=== PATIENT | female | born 1955 | race Two or more races ===

== ENCOUNTER 2025-09-18 11:27 | Emergency (ER) | payer OTHER ==
[~2025-09-18] VITALS: Ht 154.9 cm; Wt 85.0 kg
--- NOTE | 2025-09-18 11:42 | ECG ---
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
--- NOTE | 2025-09-18 12:02 | ED.PDOC ---
HPI Comments 70 y/o F, with PMHx of HTN, HLD, and DM presents to the ED for CC of chest pain. Patient states, she began to experience sudden left-sided chest pain following local anesthesia during a dental procedure today (09/18/25). Following procedure, patient relays to have associated dizziness. Patient reports, to have had similar episodes in the past but never during a procedure. Patient endorses, taking her blood pressure medication as prescribed this morning (09/18/25); denies taking her Aspirin or any other blood thinners. Patient denies nausea, vomiting, shortness of breath, or headache. No other symptoms or modifying factors are present at this time. Chief Complaint: Chest Pain Time Seen by MD: 11:50 Reviewed Notes: Nurses Notes, Medications, Allergies Allergies: Uncoded Allergies: VACCINES (Allergy, Unknown, 09/18/25) Information Source: Patient Mode of Arrival: Ambulatory Severity: Moderate Timing: Minutes Duration: Since onset Prehospital treatment: None Location: Chest (L) Radiation: No Radiation Quality: Squeezing Cardiac Risk Factors: Hyperlipidemia, HTN, Diabetes PE Risk Factors: None History of: Similar pain in past Modifying Factors: Nothing Associated Signs and Symptoms: None Past Medical History PAST MEDICAL HISTORY: DM, High Lipids, HTN Surgical History: Hysterectomy CAP INSPECTOR History: Denies all CAP INSPECTOR Hx Family History Family History: Unknown Social History Smoker: Non-Smoker Alcohol: Denies ETOH Use Drugs: Denies Drug Use Lives In: Home Constitutional: denies: chills, diaphoresis, fatigue, fever, malaise, sweats, weakness, others EENTM: denies: blurred vision, double vision, ear bleeding, ear discharge, ear drainage, ear pain, ear ringing, eye pain, eye redness, hearing loss, mouth pain, mouth swelling, nasal discharge, nose bleeding, nose congestion, nose pain, photophobia, tearing, throat pain, throat swelling, voice changes, others Respiratory: denies: cough, hemoptysis, orthopnea, SOB at rest, shortness of breath, SOB with excertion, stridor, wheezing, others Cardiovascular: reports: chest pain; denies: dizzy spells, diaphoresis, Dyspnea on exertion, edema, irregular heart beat, left arm pain, lightheadedness, palpitations, PND, syncope, others Gastrointestinal: denies: abdomen distended, abdominal pain, blood streaked bowels, constipated, diarrhea, dysphagia, difficulty swallowing, hematemesis, melena, nausea, poor appetite, poor fluid intake, rectal bleeding, rectal pain, vomiting, others Genitourinary: denies: abnormal vagina bleeding, burning, dyspareunia, dysuria, flank pain, frequency, hematuria, incontinence, pain, , vagina discharge, urgency, others Neurological: reports: dizziness; denies: fainting, headache, left sided numbness, left sided weakness, numbness, paresthesia, pre-existing deficit, right sided numbness, right sided weakness, seizure, speech problems, tingling, tremors, weakness, others Musculoskeletal: denies: back pain, gout, joint pain, joint swelling, muscle pain, muscle stiffness, neck pain, others Integumetry: denies: bruises, change in color, change in hair/nails, dryness, laceration, lesions, lumps, rash, wounds, others Allergic/Immunocompromised: denies: Difficulty Healing, Frequent Infections, Hives, Itching, others Hematologic/Lymphatic: denies: anemia, blood clots, easy bleeding, easy bruising, swollen glands, others Endocrine: denies: excessive hunger, excessive sweating, excessive thirst, excessive urination, flushing, intolerance to cold, intolerance to heat, unexplained weight gain, unexplained weight loss, others Psychiatric: denies: anxiety, bipolar disorder, depression, hopeless, panic disorder, schizophrenia, sleepless, suicidal, others All Other Systems: Reviewed and Negative Physical Exam General Appearance: Moderate Distress, Obese HEENT: Normal ENT Inspection, Pharynx Normal, TMs Normal Neck: Full Range of Motion, Non-Tender, Normal, Normal Inspection Respiratory: Chest Non-Tender, Lungs Clear, No Accessory Muscle Use, No Respiratory Distress, Normal Breath Sounds Cardiovascular: No Edema, No JVD, No Murmur, No Gallop, Normal Peripheral Pulses, Regular Rate/Rhythm Breast Exam: Deferred Gastrointestinal: No Organomegaly, Non Tender, No Pulsatile Mass, Normal Bowel Sounds, Soft Genitalia: Deferred Pelvic: Deferred Rectal: Deferred Extremities: No calf tenderness, Normal capillary refill, Normal inspection, Normal range of motion, Non-tender, No pedal edema Musculoskeletal : Apperance: Normal Neurologic: Alert, prizer hand II-XII nml as Tested, Motor Weakness, Normal Affect, Normal Mood, No Sensory Deficits Cerebellar Function: Normal Reflexes: Normal Skin: Dry, Normal Color, Warm Lymphatic: No Adenopathy EKG EKG : Pulse Rate (adult): 71 [place]: Normal Cardiac Rhythm: NSR Block: None Hypertrophy: None ST: Normal Was a procedure done? Was a procedure done?: No CP Differential Dx Differential Diagnosis: Anxiety / Panic Attack Differential Diagnosis: HTN Essential, HTN Accelerated Differential Diagnosis: Angina, Chest Wall Pain, Costochondritis X-Ray, Labs, Meds, VS Vital Signs Date Time Temp Pulse Resp B/P (MAP) Pulse Ox O2 Delivery O2 Flow Rate FiO2 09/18/25 12:34 94 Room Air* 0 21 09/18/25 12:33 77 94 Room Air 0 09/18/25 12:30 98.1 78 17 135/66 (89) 94 98.1 09/18/25 12:25 76 09/18/25 12:02 71 09/18/25 11:37 97.4 71 20 141/62 96 97.4 09/18/25 11:34 71 Lab Test 09/18/25 12:43 09/18/25 11:49 Range/Units Troponin I High Sensitivity < 3 L < 3 L </=34 ng/L White Blood Count 10.1 4.4-10.8 10^3/uL Red Blood Count 4.46 4.0-5.20 10^6/uL Hemoglobin 12.6 12.2-16.2 g/dL Hematocrit 37.9 36.0-46.0 % Mean Corpuscular Volume 85.0 80.0-100.0 fL Mean Corpuscular Hemoglobin 28.3 28.0-32.0 pg Mean Corpuscular Hemoglobin Concent 33.3 32.0-36.0 g/dL Red Cell Distribution Width 13.8 11.8-14.3 % Platelet Count 335 140-450 10^3/uL Mean Platelet Volume 9.6 6.9-10.8 fL Neutrophils (%) (Auto) 60.4 37.0-80.0 % Lymphocytes (%) (Auto) 30.8 10.0-50.0 % Monocytes (%) (Auto) 5.9 0.0-12.0 % Eosinophils (%) (Auto) 2.2 0.0-7.0 % Basophils (%) (Auto) 0.7 0.0-2.0 % Neutrophils # (Auto) 6.1 1.6-8.6 10 ^3/uL Lymphocytes # (Auto) 3.1 0.4-5.4 10 ^3/uL Monocytes # (Auto) 0.6 0-1.3 10 ^3/uL Eosinophils # (Auto) 0.2 0-0.8 10 ^3/uL Basophils # (Auto) 0.1 0-0.2 10 ^3/uL Nucleated Red Blood Cells 0.0 % Sodium Level 140 136-145 mmol/L Potassium Level 3.5 3.5-5.1 mmol/L Chloride Level 102 98-107 mmol/L Carbon Dioxide Level 28 20-31 mmol/L Anion Gap 10 5-15 Blood Urea Nitrogen 16 9-23 mg/dL Creatinine 0.83 0.550-1.02 mg/dL Glomerular Filtration Rate Calc 76 >90 mL/min BUN/Creatinine Ratio 19.3 10.0-20.0 Serum Glucose 107 H 74-106 mg/dL Calcium Level 10.0 8.7-10.4 mg/dL Current Medications Medications (Trade) Dose Ordered Sig/Issa Route Start Time Stop Time Status Last Admin Aspirin 162 mg ONCE ONCE PO 09/18/25 11:45 09/18/25 11:46 DC 09/18/25 12:50 CXR: FINDINGS: Lines and Tubes: None Lungs: Prominent bronchovascular markings bilaterally in a perihilar and lower lung arellano. Pleura: No effusion. No pneumothorax. Cardiomediastinal contours: Upper limits of normal Bones: No acute osseous abnormality. IMPRESSION: 1. No prior studies for comparison. Findings may be due to chronic disease or congestive failure. IV Hep-Lock was established The patient was given aspirin 162 mg by mouth. The patient's CBC and chemistry panel are within normal limits The troponin level is negative x2. The patient is being admitted with a diagnosis of acute chest pain and myocardial ischemia Images Reviewed?: Images reviewed and evaluated by me Time of 1ST Reevaluation: 12:20 Reevaluation 1ST: Unchanged Patient Education/Counseling: Diagnosis, Treatment, Prognosis Family Education/Counseling: Diagnosis, Treatment, Prognosis SEPSIS Sepsis Screen Date sepsis recognized/suspect: Sep 18, 2025 Time Sepsis recognized/suspect: 1134 Recent Procedure: No On Antibiotic Therapy: No Respiratory Rate >20: No Heart Rate >90: No Temp<36 C (96.8 F) or >38.3 C: No SBP <90 or MAP <65 mmHG: No New Acute Mental Status Change: No Is the patient on CPAP, BIPAP,: No Physician Orders Chest Portable (09/18/25 11:41) Urinalysis (09/18/25 11:41) Electrocardigram (09/18/25 12:41) Electrocardigram (09/18/25 14:41) Heplock Iv (09/18/25 ) Vital Signs Date Time Temp Pulse Resp B/P (MAP) Pulse Ox O2 Delivery O2 Flow Rate FiO2 09/18/25 12:34 94 Room Air* 0 21 09/18/25 12:33 77 94 Room Air 0 09/18/25 12:30 98.1 78 17 135/66 (89) 94 98.1 09/18/25 12:25 76 09/18/25 12:02 71 09/18/25 11:37 97.4 71 20 141/62 96 97.4 09/18/25 11:34 71 Laboratory Tests Test 09/18/25 11:49 White Blood Count 10.1 10^3/uL (4.4-10.8) Medications Medications Dose Ordered Sig/Issa Route Start Time Stop Time Status Last Admin Dose Admin Aspirin 162 mg ONCE ONCE PO 09/18/25 11:45 09/18/25 11:46 DC 09/18/25 12:50 Departure 1 Departure Time of Disposition: 14:46 Impression: Primary Impression: Acute chest pain Additional Impression: Acute myocardial ischemia Disposition: 09 ADMITTED INPATIENT Admit to: Tele Condition: Fair Critical Care Note Critical Care Time?: Yes (45 min-critical care time only) Stability Stability form required: Yes Unstable for transfer: Telemetry monitoring (Telemetry monitoring required), ED Physician Assesment (Clinical assesment) Heart Score Heart Score: Heart Score Response (Comments) Value History Moderate Suspicious 1 EKG Normal 0 Age >65 2 Risk Factors 1 or 2 risk factors 1 Troponin Normal limit 0 Total 4 I personally scribed for PRICILLA HUNTER MD ([email or web address]) on 09/18/25 at 12:02. Electronically submitted by Nydia Soliz ([email or web address]). I personally scribed for PRICILLA HUNTER MD ([email or web address]) on 09/18/25 at 13:57. Electronically submitted by Nydia Soliz ([email or web address]). PRICILLA HUNTER MD Sep 18, 2025 12:02
[2025-09-18 12:19] LABS: Hematocrit 37.9 % (36.0-46.0); Hemoglobin 12.6 g/dL (12.2-16.2); Mean Corpuscular Hemoglobin 28.3 pg (28.0-32.0); Mean Corpuscular Volume 85.0 fL (80.0-100.0); Nucleated Red Blood Cells % 0.0 %
[2025-09-18 12:31] LABS: Chloride 102 mmol/L (98-107); Sodium 140 mmol/L (136-145)
[2025-09-18 12:32] LABS: Anion Gap 10 (5-15); Calcium 10.0 mg/dL (8.7-10.4); Carbon Dioxide 28 mmol/L (20-31)
[2025-09-18 12:36] LABS: Potassium 3.5 mmol/L (3.5-5.1)
[2025-09-18 12:37] LABS: BUN/Creatinine Ratio 19.3 (10.0-20.0); Blood Urea Nitrogen 16 mg/dL (9-23)
[2025-09-18 12:38] LABS: Glucose 107 mg/dL (74-106)
--- NOTE | 2025-09-18 13:30 | DVH ---
CHEST RADIOGRAPH Indication: CP Technique: Single frontal view of the chest was obtained Comparison: None FINDINGS: Lines and Tubes: None Lungs: Prominent bronchovascular markings bilaterally in a perihilar and lower lung arellano. Pleura: No effusion. No pneumothorax. Cardiomediastinal contours: Upper limits of normal Bones: No acute osseous abnormality. IMPRESSION: 1. No prior studies for comparison. Findings may be due to chronic disease or congestive failure.
--- NOTE | 2025-09-18 15:15 | DVHDS2 ---
Discharge Summary Date of Admission Date of Discharge: Sep 18, 2025 Labs/Diagnostic Data: Laboratory Results Test 09/18/25 12:43 09/18/25 11:49 Troponin I High Sensitivity < 3 ng/L (</=34) White Blood Count 10.1 10^3/uL (4.4-10.8) Red Blood Count 4.46 10^6/uL (4.0-5.20) Hemoglobin 12.6 g/dL (12.2-16.2) Hematocrit 37.9 % (36.0-46.0) Mean Corpuscular Volume 85.0 fL (80.0-100.0) Mean Corpuscular Hemoglobin 28.3 pg (28.0-32.0) Mean Corpuscular Hemoglobin Concent 33.3 g/dL (32.0-36.0) Red Cell Distribution Width 13.8 % (11.8-14.3) Platelet Count 335 10^3/uL (140-450) Mean Platelet Volume 9.6 fL (6.9-10.8) Neutrophils (%) (Auto) 60.4 % (37.0-80.0) Lymphocytes (%) (Auto) 30.8 % (10.0-50.0) Monocytes (%) (Auto) 5.9 % (0.0-12.0) Eosinophils (%) (Auto) 2.2 % (0.0-7.0) Basophils (%) (Auto) 0.7 % (0.0-2.0) Neutrophils # (Auto) 6.1 10 ^3/uL (1.6-8.6) Lymphocytes # (Auto) 3.1 10 ^3/uL (0.4-5.4) Monocytes # (Auto) 0.6 10 ^3/uL (0-1.3) Eosinophils # (Auto) 0.2 10 ^3/uL (0-0.8) Basophils # (Auto) 0.1 10 ^3/uL (0-0.2) Nucleated Red Blood Cells 0.0 % Sodium Level 140 mmol/L (136-145) Potassium Level 3.5 mmol/L (3.5-5.1) Chloride Level 102 mmol/L (98-107) Carbon Dioxide Level 28 mmol/L (20-31) Anion Gap 10 (5-15) Blood Urea Nitrogen 16 mg/dL (9-23) Creatinine 0.83 mg/dL (0.550-1.02) Glomerular Filtration Rate Calc 76 mL/min (>90) BUN/Creatinine Ratio 19.3 (10.0-20.0) Serum Glucose 107 mg/dL (74-106) Calcium Level 10.0 mg/dL (8.7-10.4) Other Laboratory Tests 09/18/25 11:49 Brief Hx & Hospital Course: Patient is a 70-year-old female with past medical history of hypertension, hyperlipidemia, type 2 diabetes who presented due to complaints of chest pain that began during her dentist visit today. Patient reportedly was receiving local anesthesia when she started to have left-sided chest pain with dizziness. Patient noted that she has had similar episodes in the past but not during her dental procedure. She notes she takes aspirin daily but did not take any on the morning of her procedure. Patient did not report any other symptoms. On arrival, patient's vital signs were notable for systolic blood pressure in the 140s. No signs of tachycardia, tachypnea, hypoxia was noted. CBC was done which was within normal limits. No leukocytosis, leukopenia, anemia was noted. BMP was within normal limits. Troponin was nonelevated x 2. EKG showed sinus rhythm without ST changes. Patient's chest pain had reportedly improved. Patient to be discharged home. Patient given ER precautions. Follow-up to be arranged with [facility] case management for stat appointment with cardiology with echo. Patient to follow-up with PCP as well. [facility] case management to assist with arranging appointments. Condition at Discharge: Good Final Diagnosis/Problems List Chest Pain Secondary Diagnosis: Type 2 DM Hypertension Hyperlipidemia Discharge Disposition: Home Discharge Statement: "Patient was advised to return to the ER or call 911 if any headaches, dizziness, shortness of breath, chest pain, abdominal pain, bleeding, fevers, or worsening of medical condition. Patient was counseled about treatment plan, medications, possible side effects, patientverbalized understanding. All questions were answered to the best of my ability. This discharge took greater then 30 minutes in planning, reviewing documentation, counseling the patient, and discussing with other team members." ASSESSMENT ASSESSMENT Assessment JIM REAL DO Sep 18, 2025 15:15
--- NOTE | 2025-09-18 15:40 | ECG ---
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
[2025-09-18 19:30] VITALS: PULSE 88; RESP 16; O2SAT 98
[2025-09-18 19:31] VITALS: BP 145/56; PULSE 73; RESP 20; TEMP 98; O2SAT 94
--- NOTE | 2025-09-20 06:59 | ECG ---
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
== END 2025-09-18 19:33 | disposition home or self-care (01) ==
LOC: ER 11:27
DX: I24.9 Acute ischemic heart disease, unspecified (principal); R07.89 Other chest pain; E11.9 Type 2 diabetes mellitus without complications; E78.5 Hyperlipidemia, unspecified; I10 Essential (primary) hypertension; Z90.710 Acquired absence of both cervix and uterus
CPT/HCPCS: 36415; 71045; 80048; 84484; 85025; 93005; 99291